=== PATIENT | female | born 1950 | race Hispanic/Latino ===

== ENCOUNTER 2022-07-16 16:22 | Emergency (ER) | payer MEDICARE, OTHER ==
[2022-07-16] MEDS ORDERED: predniSONE 20 MG TAB ONE (17:26)
[2022-07-16 18:07] LABS: ALT (SGPT) 13 U/L (8-55); AST (SGOT) 24 U/L (5-34); Albumin 4.1 g/dL (3.4-4.8); Alkaline Phosphatase 65 U/L (40-110); Anion Gap 13 mmol/L (10-20); BUN (Urea Nitrogen) 18 mg/dL (9.8-20.1); Bilirubin, Total 0.3 mg/dL (0.2-1.2); Calc. Creatinine Clearance 0 mL/min (70-130); Calcium 9.5 mg/dL (7.8-10.44); Carbon Dioxide 26 mmol/L (23-31); Chloride 103 mmol/L (98-107); Estimated GFR 71; Globulin 4.4 g/dL (2.4-3.5); Glucose 93 mg/dL (83-110); Potassium 3.7 mmol/L (3.5-5.1); Protein, Total 8.5 g/dL (5.8-8.1); Sodium 138 mmol/L (136-145)
[2022-07-16 18:16] LABS: #Basophils 0.1 thou/uL (0.0-0.2); #Eosinphils 0.2 thou/uL (0.0-0.7); #Monocytes 0.5 thou/uL (0.11-0.59); #Neutrophils 5.3 thou/uL (1.40-6.50); %Basophils 0.7 % (0.0-1.0); %Eosinophils 2.7 % (0.0-10.0); %Lymphocytes 33.1 % (21.0-51.0); %Monocytes 5.9 % (0.0-10.0); %Neutrophils 57.6 % (42.0-75.0); Hypochromia SLIGHT = 6-15 cells (100X) (0-5/hpf); MDiff Complete? YES; Mean Corpuscular Hemoglobin 28.9 pg (27.0-31.0); Mean Corpuscular Volume 96.5 fL (78.0-98.0); Mean Platelet Volume 8.4 fL (7.4-10.4); Platelet Count 285 thou/uL (130-400); RBC Distribution Width 14.6 % (11.5-14.5); Red Blood Cell (RBC) Count 4.15 mill/uL (4.20-5.40); White Blood Cell (WBC) Count 9.2 thou/uL (4.8-10.8)
[2022-07-16 23:55] LABS: Troponin I Less than 0.010 ng/mL (< 0.028)
[2022-07-17 07:49] LABS: Troponin I Less than 0.010 ng/mL (< 0.028)
== END 2022-07-17 11:18 | disposition home or self-care (01) ==
LOC: BURERS 16:22
DX: R53.1 Weakness (principal); R94.31 Abnormal electrocardiogram [ECG] [EKG]; R06.00 Dyspnea, unspecified; I10 Essential (primary) hypertension; Z20.822 Contact with and (suspected) exposure to COVID-19
CPT/HCPCS: 71045; 80053; 83880; 84484 ×2; 85025; 87804 ×2; 93005; 99285; U0003; U0005; 36415; J7512; J7620